=== PATIENT | female | born 1935 | race Caucasian/White ===

== ENCOUNTER 2016-07-24 12:55 | Emergency (ER) | payer OTHER, MEDICARE ==
[2016-07-24 13:02] VITALS: RESP 16; TEMP 98.1
--- NOTE | 2016-07-24 13:08 | EDPHY ---
H & P Stated Complaint: 2 x days of blood in urine Time Seen by Provider: 07/24/16 13:05 HPI/ROS: CHIEF COMPLAINT: Intermittent hematuria HISTORY OF PRESENT ILLNESS: The patient presents to the ED today for evaluation of intermittent hematuria. Her symptoms have been occurring episodically since February of this year. The patient was seen at the Urgent Care during 1 of these visits and diagnosed with possible urinary tract infection however in reviewing her culture, she had no evidence of a UTI. The patient has been told to follow up with Urology and has not yet made that appointment. The patient does have a history of coronary artery disease and is on Effient. She has been taking that medication since 2003. The patient was seen yesterday at an urgent care clinic for recurrent hematuria and started on Bactrim. The patient denies acute abdominal pain. She denies additional complaints. REVIEW OF SYSTEMS: A comprehensive 10 point review of systems is otherwise negative aside from elements mentioned in the history of present illness. 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", partial pancreas removal, kidney failure, arthritis , torn meniscus R knee - Social History Smoking Status: Never smoked - Physical Exam Exam: General Appearance: Alert, no distress Eyes: Pupils equal and round no pallor or injection ENT, Mouth: Mucous membranes moist Respiratory: There are no retractions, lungs are clear to auscultation Cardiovascular: Regular rate and rhythm Gastrointestinal: Abdomen is soft and nontender, no masses, bowel sounds normal Neurological: A&O, normal motor function, normal sensory exam, normal cranial nerves Skin: Warm and dry, no rashes Musculoskeletal: Neck is supple nontender Extremities: symmetrical, full range of motion Constitutional: Initial Vital Signs Temperature (C) 36.7 C 07/24/16 12:56 Heart Rate 83 07/24/16 12:56 Respiratory Rate 16 07/24/16 12:56 Blood Pressure 145/100 H 07/24/16 12:56 O2 Sat (%) 91 L 07/24/16 12:56 O2 Delivery Mode Room Air Allergies/Adverse Reactions: ciprofloxacin [From Cipro] Allergy (Verified 11/25/13 23:21) ciprofloxacin HCl [From Cipro] Allergy (Verified 11/25/13 23:21) nifedipine [From Procardia] Allergy (Verified 11/25/13 23:21) ativan Allergy (Uncoded 07/24/16 13:02) Home Medications: Medication Instructions Recorded Budesonide [Pulmicort 0.25MG/2Ml 0.25 mg IH BID 11/26/13 Neb (*)] Herbals/Supplements -Info Only 1 ea PO DAILY 11/26/13 Aspirin EC [Aspirin EC 325 mg (*)] 325 mg PO DAILY #30 tab 12/02/13 Prasugrel HCl [Effient 10mg (*)] 10 mg PO DAILY #30 tab 12/02/13 Albuterol Sulfate [ALBUTEROL 0.63 mg IH BID 01/07/14 SULFATE] Carvedilol [Coreg (*)] 12.5 mg PO BIDMEAL #0 tab 01/08/14 Effient 04/04/16 Metropolol 04/04/16 Medical Decision Making ED Course/Re-evaluation: The patient presents to the emergency department with intermittent hematuria in the setting of Effient use. The patient has been treated for possible cystitis as an etiology of this symptom however based upon her urine culture in February it is unclear if this is the case. The patient has not yet started her Bactrim she was prescribed yesterday. I have ordered a urinalysis and urine culture in the ED today. I did curbside Dr. Kyra Martin from Cardiology who helped me reviewed the patient 's records. At this point time it does appear that she can stop taking Effient especially in the setting of her hematuria. The patient does have some pyuria. She will call the emergency department in 2 days to check the results of her culture. She has already been given a prescription for Bactrim by urgent care. The patient has been instructed to follow up with Urology for further evaluation of her hematuria. She has been instructed that this is important to exclude an additional cause of hematuria such as cancer. The patient will be discharged home in stable condition. She has no evidence of pyelonephritis or an acute abdomen. Differential Diagnosis: Differential diagnosis considered includes urinary tract infection, gross hematuria, medication side effect, genitourinary malignancy - Data Points Laboratory Results: 07/24/16 13:10 Urine Color YELLOW Urine Appearance MODERATELY TURBID Urine pH 5.0 (5.0-7.5) Ur Specific [place] 1.009 (1.002-1.030) Urine Protein 1+ H (NEGATIVE) Urine Ketones NEGATIVE (NEGATIVE) Urine Blood 3+ H (NEGATIVE) Urine Nitrate NEGATIVE (NEGATIVE) Urine Bilirubin NEGATIVE (NEGATIVE) Urine Urobilinogen NEGATIVE EU (0.2-1.0) Ur Leukocyte Esterase TRACE H (NEGATIVE) Urine RBC 50-182 H /hpf (0-3) Urine WBC 15-25 H /hpf (0-3) Ur Epithelial Cells TRACE /lpf (NONE-1+) Urine Mucus 1+ /lpf (NONE-1+) Urine Yeast PRESENT /hpf (NONE SEEN) Ur Culture Indicated? INDICATED H (NI) Urine Glucose NEGATIVE (NEGATIVE) Departure - Departure Disposition: Home, Routine, Self-Care Clinical Impression: Hematuria, Urinary tract infection Condition: Good Instructions: Hematuria (ED) Additional Instructions: 1. Please take antibiotics as prescribed for possible urinary tract infection. We have obtained a urine culture. Please contact the ED in 2 days to ensure that the Bactrim you have been prescribed by Urgent Care will be adequate in treating your infection. 2. Please follow up with the urologist you have been referred to, Dr. Bro, for further evaluation of the blood in her urine. Please contact their office in the next 1-2 days to schedule this appointment. It is important that additional workup be done of your blood in the urine to exclude another explanation such as bladder cancer. 3. As recommended by Dr. Martin from Cardiology please stop taking Effient and begin taking an 81 mg baby aspirin daily. Referrals: Anthony Bro MD [Medical Doctor] - As per Instructions
[2016-07-24 13:19] LABS: COLOR YELLOW; LEUKOCYTE ESTERASE,URINE TRACE (NEGATIVE); NITRITE,URINE NEGATIVE (NEGATIVE)
[2016-07-24 13:45] LABS: MUCUS 1+ /lpf (NONE-1+); RBC,URINE 50-182 /hpf (0-3); WBC,URINE 15-25 /hpf (0-3); YEAST PRESENT /hpf (NONE SEEN)
[2016-07-24 14:06] VITALS: O2SAT 94
[2016-07-24 14:52] VITALS: BP 134/89; PULSE 70
== END 2016-07-24 14:51 | disposition home or self-care (01) ==
DX: N39.0 Urinary tract infection, site not specified (principal); B96.89 Other specified bacterial agents as the cause of diseases classified elsewhere; I10 Essential (primary) hypertension; E11.9 Type 2 diabetes mellitus without complications; Z79.82 Long term (current) use of aspirin